=== PATIENT | male | born 1990 | race Caucasian/White ===

== ENCOUNTER 2018-04-15 08:06 | Emergency (ER) | payer OTHER, MEDICAID ==
[2018-04-15] MEDS: METHYLPREDNISOLONE 125 MG INJ IV (08:46)
[2018-04-15] MEDS: SOD CHLORIDE 0.9% 1,000 ML IV (08:47)
[2018-04-15] MEDS: DIPHENHYDRAMINE 50 MG INJ IV (08:47)
[2018-04-15] MEDS: FAMOTIDINE 20 MG INJ IV (08:47)
[2018-04-15 09:01] LABS: ADD MAN DIFF? NO
[2018-04-15 09:04] LABS: BASOPHILS % 0.3 % (0.0-2.0); EOSINOPHILS # 0.3 10^3/ul (0.0-0.5); EOSINOPHILS % 3.1 % (0.0-7.0); HEMATOCRIT 37.7 % (42.0-52.0); HEMOGLOBIN 12.8 g/dl (14.0-18.0); LYMPHOCYTES # 1.8 10^3/ul (0.8-2.9); LYMPHOCYTES % 15.9 % (15.0-51.0); MEAN CORPUSCULAR HEMOGLOBIN 29.4 pg (29.0-33.0); MEAN CORPUSCULAR VOLUME 86.7 fl (82.0-101.0); MEAN PLATELET VOLUME 8.8 fl (7.4-10.4); MONOCYTE # 0.7 10^3/ul (0.3-0.9); MONOCYTES % 6.3 % (0.0-11.0); NEUTROPHIL # 8.2 10^3/ul (1.6-7.5); NEUTROPHILS % 73.9 % (39.0-77.0); PLATELET COUNT 254 10^3/UL (140-415); RED BLOOD COUNT 4.35 10^6/ul (4.70-6.10); RED CELL DISTRIBUTION WIDTH 12.2 % (11.5-14.5)
[2018-04-15 09:30] LABS: MONOTEST Negative (NEG)
[2018-04-15 09:31] LABS: ALANINE AMINOTRANSFERASE 25 IU/L (13-69); ALBUMIN 3.8 g/dl (3.3-4.9); ALBUMIN/GLOBULIN RATIO 1.11; ALKALINE PHOSPHATASE 64 IU/L (42-121); ANION GAP 11 (8-16); ASPARTATE AMINO TRANSFERASE 29 IU/L (15-46); BILIRUBIN,INDIRECT 0.3 mg/dl (0-1.1); BILIRUBIN,TOTAL 0.3 mg/dl (0.2-1.3); BLOOD UREA NITROGEN 9 mg/dl (7-20); CARBON DIOXIDE 25 mmol/L (21-31); CHLORIDE 107 mmol/L (97-110); CREATININE 0.63 mg/dl (0.61-1.24); GLUCOSE 101 mg/dl (70-220); POTASSIUM 3.9 mmol/L (3.5-5.1); SODIUM 139 mmol/L (135-144); TOTAL PROTEIN 7.2 g/dl (6.1-8.1)
[2018-04-15 10:11] LABS: FREE THYROXINE INDEX (Calc) 3.07 ug/ml (0.65-3.89); T3 UPTAKE 27.4 % (23.5-40.5); T4 (THYROXINE) 11.2 ug/dl (5.5-11.0)
[2018-04-15] MEDS: SOD CHLORIDE 0.9% 100 ML (10:49)
[2018-04-15] MEDS: IOHEXOL 300MG/ML 150 ML BTL (10:49)
== END 2018-04-15 12:25 | disposition home or self-care (01) ==
LOC: FTE 08:06
DX: K11.20 Sialoadenitis, unspecified (principal); L03.211 Cellulitis of face
CPT/HCPCS: 36415; 70491; 80053; 84436; 84443; 84479; 85025; 86308; 87880; 96361; 96374; 96375; 99285-25